=== PATIENT | female | born 1960 | race Caucasian/White ===

== ENCOUNTER 2023-07-07 10:33 | Outpatient (OUT) | payer OTHER, SELFPAY ==
[2023-07-07 11:06] LABS: Basophils Percent Auto 0.3 % (0.2-2.0); Eosinophils Absolute Auto 0.1 10^3/uL (0.0-0.7); Eosinophils Percent Auto 1.6 % (0.9-7.0); Hematocrit 38.4 % (36.0-48.0); Hemoglobin 12.1 g/dL (12.0-16.0); Immature Granulocytes Abs Auto 0.01 10^3/uL (0.00-0.03); Immature Granulocytes Pct Auto 0.1 % (0.0-0.5); Mean Corpuscular HGB Conc 31.5 g/dL (29.9-35.2); Mean Corpuscular Hemoglobin 31.3 pg (26.7-34.0); Mean Corpuscular Volume 99.2 fL (81.0-99.0); Mean Platelet Volume 10.6 fL (9.5-13.5); Monocytes Absolute Auto 0.4 10^3/uL (0.3-0.8); Monocytes Percent Auto 4.9 % (1.7-12.0); Neutrophils Absolute Auto 4.6 10^3/uL (1.4-6.5); Neutrophils Percent Auto 65.1 % (43.0-75.0); Platelet Count 273 10^3/uL (150-450); Red Blood Count 3.87 10^6/uL (4.20-5.40); Red Cell Distribution Width 13.1 % (11.0-15.0); White Blood Count 7.1 10^3/uL (4.0-11.0)
[2023-07-07 11:38] LABS: Estimated Average Glucose 120 mg/dL; Glycohemoglobin A1C 5.8 % (4.5-6.2)
[2023-07-07 12:18] LABS: Alanine Aminotransferase 15 U/L (14-59); Albumin Globulin Ratio 1.1; Albumin Level 3.8 g/dL (3.4-5.0); Alkaline Phosphatase 88 U/L (46-116); Anion Gap 12.9; Aspartate Amino Transferase 10 U/L (15-37); BUN Creatinine Ratio 20.9; Bilirubin Total 0.5 mg/dL (0.2-1.0); Calcium 9.2 mg/dL (8.5-10.1); Chloride 105 mmol/L (98-107); Chol HDL Ratio 3.5; Cholesterol 190 mg/dL (<=200); Estimated GFR (African America >60 (>=60); Estimated GFR (Non-African Ame >60 (>=60); Globulin 3.5 g/dL; Glucose 99 mg/dL (74-106); HDL Cholesterol 55 mg/dL (40-60); LDL Cholesterol Calculated 116.6 mg/dL; Potassium 3.9 mmol/L (3.5-5.1); Sodium 140 mmol/L (136-145); Thyroid Stimulating Hormone 2.999 uIU/mL (0.358-3.740); Total Protein 7.3 g/dL (6.4-8.2); Triglycerides 92 mg/dL (<=150); VLDL CHOLESTEROL 18.4 mg/dL
== END 2023-07-07 10:34 | disposition home or self-care (01) ==
PROVIDERS: PCP Internal Medicine; Visit Provider Internal Medicine
DX: Z00.00 Encounter for general adult medical examination without abnormal findings (principal)
CPT/HCPCS: 36415; 80053; 80061; 82607; 83036; 84443; 85025

== ENCOUNTER 2023-08-25 14:57 | Outpatient (OUT) | payer OTHER, SELFPAY ==
--- NOTE | 2023-08-25 14:59 | MM_ITS ---
Patient Name: JANETT SANTILLAN MR#: [id number] : 1960 Exam Date: 08/25/2023 Ordering Doctor: DR Sammy Jane D.O. RADIOLOGY REPORT PROCEDURE: MM TOMOSYNTHESIS SCREENING BI COMPARISON: MG MAMM SCREEN 3D [place] CAD, 08/06/2021. MG MAMM SCREEN [place] W CAD, 06/12/2019. MG MAMM [place] SCRN W CAD DIG, 06/20/2015. MG MAMM [place] SCRN W CAD DIG, 01/06/2012. INDICATIONS: Screening Calculator Name NCI Breast Cancer Risk Assessment Tool 5 Year Breast Cancer Risk 1.70% Lifetime Breast Cancer Risk 7.70% Personal Breast Cancer No Personal Ovarian Cancer No Treatments None Family Cancers Mother with uterine cancer at age ~60; Father with pancreatic cancer at age 65. LOCATION: [facility] BREAST COMPOSITION: Heterogeneously dense,which may obscure small masses. FINDINGS: DIAGNOSTIC CATEGORY 2--BENIGN FINDING: RIGHT BREAST: No significant suspicious finding. Scattered benign-appearing calcifications are present. No significant change has occurred. LEFT BREAST: No significant suspicious finding. Scattered benign-appearing calcifications are present. No significant change has occurred. RECOMMENDATIONS: ROUTINE MAMMOGRAM AND CLINICAL EVALUATION IN 12 MONTHS. PLEASE NOTE: A NORMAL MAMMOGRAM DOES NOT EXCLUDE THE POSSIBILITY OF BREAST CANCER. A CLINICALLY SUSPICIOUS PALPABLE LUMP SHOULD BE BIOPSIED. Dictated by: Rafael Rocha M.D. on 08/26/2023 at 12:47 Approved by: Rafael Rocha M.D. on 08/26/2023 at 12:52
== END 2023-08-25 14:58 | disposition home or self-care (01) ==
LOC: MAMMO 14:57
PROVIDERS: PCP Internal Medicine; Visit Provider Internal Medicine
DX: Z12.31 Encounter for screening mammogram for malignant neoplasm of breast (principal); Z80.49 Family history of malignant neoplasm of other genital organs; Z80.0 Family history of malignant neoplasm of digestive organs
CPT/HCPCS: 77063; 77067

== ENCOUNTER 2024-09-20 12:46 | Outpatient (OUT) | payer OTHER, SELFPAY ==
--- NOTE | 2024-09-20 12:51 | MM_ITS ---
Patient Name: JANETT SANTILLAN MR#: [id number] : 1960 Exam Date: 09/20/2024 Ordering Doctor: DR Sammy Jane D.O. RADIOLOGY REPORT PROCEDURE: MM TOMOSYNTHESIS SCREENING BI COMPARISON: MM TOMOSYNTHESIS SCREENING BI, 08/25/2023. MG MAMM SCREEN 3D [place] CAD, 08/06/2021. INDICATIONS: Screening for malignant neoplasm Calculator Name NCI Breast Cancer Risk Assessment Tool 5 Year Breast Cancer Risk 1.70% Lifetime Breast Cancer Risk 7.40% Personal Breast Cancer No Personal Ovarian Cancer No Treatments None Family Cancers Mother with uterine cancer at age ~60; Father with pancreatic cancer at age 65. LOCATION: [facility] BREAST COMPOSITION: The breasts are heterogeneously dense,which may obscure small masses. FINDINGS: DIAGNOSTIC CATEGORY 2--BENIGN FINDING. NO CHANGE FROM COMPARISON. Scattered benign-appearing calcifications are present. Scattered benign-appearing lymph nodes are present. RIGHT BREAST: No significant suspicious finding. LEFT BREAST: No significant suspicious finding. RECOMMENDATIONS: ROUTINE MAMMOGRAM AND CLINICAL EVALUATION IN 12 MONTHS. PLEASE NOTE: A NORMAL MAMMOGRAM DOES NOT EXCLUDE THE POSSIBILITY OF BREAST CANCER. A CLINICALLY SUSPICIOUS PALPABLE LUMP SHOULD BE BIOPSIED. Dictated by: Broderick Walters MD on 09/20/2024 at 15:34 Approved by: Broderick Walters MD on 09/20/2024 at 15:35
== END 2024-09-20 12:47 | disposition home or self-care (01) ==
LOC: MAMMO 12:46
PROVIDERS: PCP Internal Medicine; Visit Provider Internal Medicine
DX: Z12.31 Encounter for screening mammogram for malignant neoplasm of breast (principal); Z80.8 Family history of malignant neoplasm of other organs or systems
CPT/HCPCS: 77063; 77067

== ENCOUNTER 2025-07-26 12:40 | Outpatient (OUT) | payer OTHER, SELFPAY ==
--- NOTE | 2025-07-26 12:43 | CT_ITS ---
The [address] [address] Patient Name: JANETT SANTILLAN MRN: [id number] date: 1960 Sex: F Assigned Patient Location: CT Current Patient Location: CT Accession/Order Number: [id number] Exam Date: 07/26/2025 12:55 Report Date: 07/26/2025 14:55 At the request of: JAGUAR BONILLA DO Procedure: CT abdomen pelvis wo con CT ABDOMEN AND PELVIS WITHOUT INTRAVENOUS CONTRAST: CLINICAL HISTORY: calculus of kidney, abdominal pain COMPARISON: CT abdomen and pelvis 01/21/2019. TECHNIQUE: Spiral images were obtained through the abdomen and pelvis without intravenous contrast. This CT exam was performed using one or more following dose reduction techniques: Automated exposure control, adjustment of the mA and/or kV according to patient size, or use of iterative reconstruction technique. FINDINGS: Lung Bases: [Mild lung scarring.] Organs:Follow-up evaluation due to lack of IV contrast. 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 Gallbladder appears unremarkable. Pancreas spleen and adrenal glands appear unremarkable. Kidneys demonstrate no stone or hydronephrosis. Aorta appears normal in caliber. GI: Stomach demonstrates a tiny hiatal hernia. Small bowel appears nondilated. No acute colonic abnormality. Appendix is normal.[ Pelvis:[Urinary bladder and uterus appear unremarkable.] Peritoneum/Retroperitoneum:No free air or free fluid or lymphadenopathy. Mild haziness involving the mesentery.[ Abd wall/Bones:Abdominal wall demonstrate no acute findings. Osseous structures demonstrate degenerative change.[ CT/CT abdomen pelvis wo con IMPRESSION: 1. No acute findings. No urinary tract calculus. 2. Mild haziness involving the mesentery stable since 2018 suggesting a benign process. Impression dictated by: Jhoan Vazquez Jr., D.O. 07/26/2025 2:55 PM Dictation Location: [place] [address] Electronically authenticated by: [id number] Y Date: 07/26/2025 14:55
--- OUTSIDE RECORDS SUMMARY | 2025-07-26 12:44 | XMS_ITS | CCD ---
Author Organization [facility] Care Team Providers Care Speech Pathology Supervisor Name Role Phone NO FAMILY, PHYSICIAN Primary Care Provider Unava ROULA Allan Attending Provider Carline Nichols Unavailable BUCK, DR MONTESINOS Admitting Unavailable BALL, DR MONTESINOS Attending Unavailable BALL, DR MONTESINOS Consulting Unavailable BALL, DR MONTESINOS Primary Care Unavailable WEST, DR MARY KAY Gleason Consulting Unavailable CEZAR, LISA Attending Unavailable CEZAR, LISA Admitting Unavailable BALL, DR MONTESINOS Primary Care Unavailable CEZAR, LISA Consulting Unavailable BALL, DR MONTESINOS Primary Care Unavailable PERLA, DAVID Finnegan Admitting Unavailable WEST, DR MARY KAY Gleason Consulting Unavailable HIGHLANDER, DAVID Finnegan Attending Unavailable HIGHLANDER, DAVID Finnegan Consulting Unavailable BALL, DR MONTESINOS Admitting Unavailable BALL, DR MONTESINOS Attending Unavailable BALL, DR MONTESINOS Primary Care Unavailable BALL, DR MONTESINOS Admitting Unavailable BALL, DR MONTESINOS Attending Unavailable BALL, DR MONTESINOS Consulting Unavailable BALL, DR MONTESINOS Primary Care Unavailable BALL, DR MONTESINOS Admitting Unavailable BALL, DR MONTESINOS Attending Unavailable BALL, DR MONTESINOS Consulting Unavailable BALL, DR MONTESINOS Primary Care Unavailable ZIEBREX, DR RAFAEL Bennett Consulting Unavailable Sammy Jane Unavailable Shyann Keene Unavailable SAMMY JANE Referring Unavailable GENERIC PROVIDER, NO ASSIGNED PCP Primary Care Unavailable Sammy Jane DO Primary Care Provider [phone] Sammy Jane DO Attending Provider [phone] Sammy Jane DO Primary Care Provider Sammy Jane DO Attending Provider [phone] Sammy Jane DO Primary Care Provider Sammy Jane DO Attending Provider [phone] An Leon APRN Attending Provider [phone] Allergies Allergy Classification Reported Allergen(s) Allergy Type Date of Onset Reaction(s) Facility (2 sources) patient allergy list reviewed by nurse or physicia Propensity to adverse reactions 8 Comment:Done [facility] Other (2 sources) Allergies Reconciled Propensity to adverse reactions Unknown [facility] Other (1 source) ALLERGIES NOT ON FILE; Translations: [ALLERGIES NOT ON FILE] Propensity to adverse reactions (disorder) [facility] Medications Current Medications Medication Drug Class(es) Dates Sig (Normalized) Sig (Original) Excedrin Migraine (17 sources) Excedrin Migrain e PRN Active naproxen sodium 550 mg oral tablet (17 sources) Nonsteroidal Anti-inflammatory Drug Start: 05-24-2022 take 1 tablet by mouth every twelve hours at mealtime as needed Naproxen Sodium 550 MG 1 tablet with food or milk as needed Orally every 12 hrs for 7 days May, Active phentermine hydrochloride 37.5 mg oral tablet (3 sources) Sympathomimetic Amine Anorectic Start: 07-07-2023 take 1 tablet by mouth once daily before breakfast Adipex-P 37.5 MG 1 tablet before breakfast Orally Once a day for 30 days Jun, Active Post-OP Shoe/Soft Top Women - (17 sources) Start: 05-24-2022 Post-OP Shoe/Soft Top Women - as directed May, Active vitamin b12 1 mg/ml injectable solution (1 source) Vitamin B12 Start: 07-11-2025 inject 1000 ug by subcutaneous injection every month Cyanocobalamin (Vitamin B-12) 1,000 mcg/mL solution Active 1000 MCG SUBCUT every month July 11, 2025 12:00am Complies with drug therapy Completed/Discontinued Medications Medication Drug Class(es) Dates Sig (Normalized) Sig (Original) B-12 - up to 1000 mcg (20 sources) Start: 11-14-2023 B-12 - up to 1000 mcg Oct, 1000 mcg Start: 10-12-2023 B-12 - up to 1 000 mcg Sep, 1000 mcg Start: 09-05-2023 B-12 - up to 1 000 mcg Aug, 1000 mcg Start: 08-03-2023 B-12 - up to 1 000 mcg Jul, 1000 mcg Start: 06-27-2023 B-12 - up to 1 000 mcg Jun, 1000 mcg Start: 05-26-2023 B-12 - up to 1 000 mcg May, 1000 mcg Start: 04-25-2023 B-12 - up to 1 000 mcg Apr, 1000 mcg Start: 03-24-2023 B-12 - up to 1 000 mcg Mar, 1000 mcg Start: 02-21-2023 B-12 - up to 1 000 mcg February, 1000 mcg Start: 01-20-2023 B-12 - up to 1 000 mcg Jan, 1000 mcg Start: 12-20-2022 B-12 - up to 1 000 mcg Dec, 1000 mcg Start: 11-22-2022 B-12 - up to 1 000 mcg Nov, 1000 mcg Start: 10-19-2022 B-12 - up to 1 000 mcg Oct, 1000 mcg Triamcinolone (17 sources) Corticosteroid Start: 07-15-2019 KENALOG - 10 m g Jun, 40 mg Problems Active Problems Problem Classification Problem Date Documented Date Episodic/Chronic Abdominal pain (2 sources) Abdominal pain; Translations: [Unspecified abdominal pain] 07-04-2025 Episodic Calculus of urinary tract (15 sources) H/O: urinary stone; Translations: [Personal history of urinary calculi] Onset: 05-24-2019 Episodic Chronic kidney disease (2 sources) Chronic kidney disease; Translations: [Chronic kidney disease, unspecified] 07-04-2025 Chronic Deficiency and other anemia (20 sources) Pernicious anemia; Translations: [Vitamin B12 deficiency anemia due to intrinsic factor deficiency] 02-13-2024 Episodic Deficiency and other anemia (14 sources) Vitamin B12 deficiency anemia due to intrinsic factor deficiency; Translations: [Pernicious anemia] Episodic Deficiency and other anemia (2 sources) Anemia; Translations: [Anemia, unspecified] Episodic Diabetes mellitus with complications (2 sources) Hyperglycemia due to type 2 diabetes mellitus; Translations: [Type 2 diabetes mellitus with hyperglycemia] Chronic Diabetes mellitus without complication (3 sources) Abnormal glucose level; Translations: [Other abnormal glucose] Episodic Fracture of lower limb (7 sources) Displaced fracture of distal phalanx of left great toe, initial encounter for closed fracture; Translations: [Displaced unspecified fracture of left great toe, initial encounter for open fracture] Onset: 07-07-2022 Episodic Gout and other crystal arthropathies (2 sources) Gout; Translations: [Gout, unspecified] Chronic Open wounds of extremities (2 sources) Open wound of toe(s) with damage to nail; Translations: [Unspecified open wound of unspecified toe(s) with damage to nail, initial encounter] Episodic Other acquired deformities (2 sources) Joint contracture of the ankle and/or foot; Translations: [Contracture, 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 Other bone disease and musculoskeletal deformities (2 sources) Juvenile osteochondrosis of foot; Translations: [Juvenile osteochondrosis of tarsus, 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 Other connective tissue disease (4 sources) Pain in right foot; Translations: [PAIN IN RIGHT FOOT] Onset: 06-22-2022 Episodic Other connective tissue disease (2 sources) Pain in right foot; Translations: [Pain in right foot] Episodic Other connective tissue disease (2 sources) Pain in left foot; Translations: [Pain in left foot] Episodic Other connective tissue disease (2 sources) Plantar fascial fibromatosis; Translations: [Plantar fascial fibromatosis] Episodic Other connective tissue disease (2 sources) Achilles bursitis; Translations: [Achilles tendinitis, right leg] Episodic Other injuries and conditions due to external causes (1 source) Unspecified injury of left foot, initial encounter Episodic Other nutritional; endocrine; and metabolic disorders (2 sources) Hypocalcemia; Translations: [Hypocalcemia] Onset: 05-24-2019 Chronic Other nutritional; endocrine; and metabolic disorders (4 sources) Obesity; Translations: [Obesity, unspecified] 07-04-2025 Chronic Other nutritional; endocrine; and metabolic disorders (2 sources) Simple obesity ; Translations: [Other obesity due to excess calories] Onset: 05-26-2016 Chronic Other nutritional; endocrine; and metabolic disorders (10 sources) Body mass index 30+ - obesity; Translations: [Body mass index 30.0-30.9, adult] Onset: 05-26-2016 Chronic Other nutritional; endocrine; and metabolic disorders (8 sources) Obesity caused by energy imbalance; Translations: [Other obesity due to excess calories] Chronic Other nutritional; endocrine; and metabolic disorders (1 source) Other obesity due to excess calories Chronic Other nutritional; endocrine; and metabolic disorders (1 source) Body mass index (BMI) 30.0-30.9, adult Chronic Other screening for suspected conditions (not mental disorders or infectious disease) (9 sources) Encounter for screening mammogram for malignant neoplasm of breast; Translations: [Patient encounter status] Onset: 08-06-2021 Episodic Residual codes; unclassified (2 sources) Family history of ischemic heart disease and other diseases of the circulatory system; Translations: [Family history of ischemic heart disease and other diseases of the circulatory system] Onset: 10-31-2023 Episodic Spondylosis; intervertebral disc disorders; other back problems (2 sources) Low back pain; Translations: [Low back pain, unspecified] Episodic Superficial injury; contusion (1 source) Contusion of left upper arm, initial encounter Episodic Viral infection (2 sources) Disease caused by 2019-nCoV; Translations: [COVID-19] Past or Other Problems Problem Classification Problem Date Documented Date Episodic/Chronic Other diseases of kidney and ureters (2 sources) Hydronephrosis with renal and ureteral calculous obstruction; Translations: [Hydronephrosis with renal and ureteral calculous obstruction] Onset: 01-23-2019 Episodic Other skin disorders (10 sources) Hidradenitis suppurativa; Translations: [Hidradenitis suppurativa] Onset: 05-26-2016 Episodic Other skin disorders (2 sources) Hair and hair follicle diseases; Translations: [Other specified disease of hair and hair follicles] Onset: 06-04-2015 Episodic Other skin disorders (1 source) Hidradenitis suppurativa Onset: 05-26-2016 Episodic Residual codes; unclassified (1 source) Family history of malignant neoplasm of other genital organs; Translations: [FAM HX MALIG NEOPLSM OT GENIT ORGN] Onset: 08-13-2021 Episodic Residual codes; unclassified (1 source) Family history of malignant neoplasm of other organs or systems; Translations: [FAM HX MALIG NEOPLASM OT ORGN/SYS] Onset: 08-13-2021 Episodic Residual codes; unclassified (2 sources) Family history of stroke; Translations: [Family history of stroke] Onset: 04-15-2014 Episodic Skin and subcutaneous tissue infections (2 sources) Abscess; Translations: [Cellulitis and abscess of other specified site] Onset: 09-08-2014 Episodic Unclassified (1 source) Low back pain potentially associated with radiculopathy M54.50 Results Test Name Value Interpretation Reference Range Facility Basophils Auto (Bld) [#/Vol] Ordered By: Sammy Jane on 06-04-2025 Basophils (Bld) [#/Vol] 0.0 10 3/uL 0.0-0.1 [facility] Basophils/100 WBC Auto (Bld) Ordered By: Sammy Jane on 06-04-2025 Basophils/100 WBC (Bld) 0.4 % 0.2-2.0 [facility] Cholesterol in LDL Calc [Mas s/Vol]Ordered By: Sammy Jane on 06-04-2025 Cholesterol in LDL [Mass/Vol] 120.8 mg/dL [facility] Comment on above: <100 mg/dl [id number] 0-129 mg/dl NEAR OR ABOVE [id number] mg/dl BORDERLINE [id number] mg/dl HIGH>190 mg/dl VERY HIGH Cholesterol in VLDL Calc [Ma ss/Vol]Ordered By: Sammy Jane on 06-04-2025 Cholesterol in VLDL [Mass/Vol] 17.2 mg/dL [facility] Eosinophils/100 WBC Auto (Bl d)Ordered By: Sammy Jane on 06-04-2025 Eosinophils/100 WBC (Bld) 2.8 % 0.9-7.0 [facility] Erythrocyte distribution wid th Auto (RBC) [Ratio]Ordered By: Sammy Jane on 06-04-2025 Erythrocyte distribution width (RBC) [Ratio] 13.3 % 11.0-15.0 [facility] Globulin Calc (S) [Mass/Vol] Ordered By: Sammy Jane on 06-04-2025 Globulin (S) [Mass/Vol] 3.7 g/dL [facility] Glomerular filtration rate ( GFR) estimation in non- AmericanOrdered By: Sammy Jane on 06-04-2025 GFR/1.73 sq M.predicted among non-blacks MDRD (S/P/Bld) [Vol rate/Area] 54 mL/min/{1.73_m2} Low >=60 mL/min/1.73 m 2 [facility] Hematocrit Auto (Bld) [Volum e fraction]Ordered By: Sammy Jane on 06-04-2025 Hematocrit (Bld) [Volume fraction] 37.9 % 36.0-48.0 [facility] Hemoglobin [Mass/volume] in BloodOrdered By: Sammy Jane on 06-04-2025 Hemoglobin (Bld) [Mass/Vol] 12.4 g/dL 12.0-16.0 [facility] Laboratory - Chemistry and C hemistry - challengeOrdered By: Sammy Jane on 06-04-2025 Albumin [Mass/Vol] 3.7 g/dL 3.4-5.0 [facility] ALP [Catalytic activity/Vol] 86 U/L 46-116 [facility] ALT [Catalytic activity/Vol] 21 U/L 14-59 [facility] AST [Catalytic activity/Vol] 16 U/L 15-37 [facility] Bilirubin [Mass/Vol] 0.5 mg/dL 0.2-1.0 [facility] Calcium [Mass/Vol] 9.0 mg/dL 8.5-10.1 [facility] Chloride [Moles/Vol] 106 mmol/L 98-107 [facility] Cholesterol [Mass/Vol] 194 mg/dL <=200 [facility] Cholesterol in HDL [Mass/Vol] 56 mg/dL 40-60 [facility] Comment on above: > or =60 mg/dl - LOW CARDIOVASCULAR RISK<40 mg/dl - HIGH CARDIOVASCULAR RISK CO2 [Moles/Vol] 24.7 mmol/L 21.0-32.0 [facility] Creatinine [Mass/Vol] 1.03 mg/dL High 0.55-1.02 [facility] GFR/1.73 sq M.predicted MDRD (S/P/Bld) [Vol rate/Area] mL/min/{1.73_m2} >=60 mL/min/1.73 m 2 [facility] Glucose [Mass/Vol] 96 mg/dL 74-106 [facility] Potassium [Moles/Vol] 4.2 mmol/L 3.5-5.1 [facility] Protein [Mass/Vol] 7.4 g/dL 6.4-8.2 [facility] Sodium [Moles/Vol] 142 mmol/L 136-145 [facility] Triglyceride [Mass/Vol] 86 mg/dL <=150 [facility] TSH Qn 5.138 m[IU]/L High 0.358-3.740 [facility] Urea nitrogen [Mass/Vol] 20.0 mg/dL High 7.0-18.0 [facility] Urea nitrogen/Creatinine [Mass ratio] 19.4 mg/mg [facility] Laboratory - Hematology and Cell countsOrdered By: Sammy Jane on 06-04-2025 Immature granulocytes/100 WBC (Bld) 0.3 % 0.0-0.5 [facility] Leukocytes [#/volume] correc kathy for nucleated erythrocytes in Blood by Automated counOrdered By: Sammy Jane on 06-04-2025 WBC corrected for nucl RBC Auto (Bld) [#/Vol] 7.8 10 3/uL 4.0-11.0 [facility] Lymphocytes Auto (Bld) [#/Vo l]Ordered By: Sammy Jane on 06-04-2025 Lymphocytes (Bld) [#/Vol] 3.0 10 3/uL 1.2-3.8 [facility] Lymphocytes/100 WBC Auto (Bl d)Ordered By: Sammy Jane on 06-04-2025 Lymphocytes/100 WBC (Bld) 38.5 % 20.5-60.0 [facility] MCH Auto (RBC) [Entitic mass ]Ordered By: Sammy Jane on 06-04-2025 MCH (RBC) [Entitic mass] 31.9 pg 26.7-34.0 [facility] MCHC Auto (RBC) [Mass/Vol]Or dered By: Sammy Jane on 06-04-2025 MCHC (RBC) [Mass/Vol] 32.7 g/dL 29.9-35.2 [facility] MCV Auto (RBC) [Entitic vol] Ordered By: Sammy Jane on 06-04-2025 MCV (RBC) [Entitic vol] 97.4 fL 81.0-99.0 [facility] Monocytes Auto (Bld) [#/Vol] Ordered By: Sammy Jane on 06-04-2025 Monocytes (Bld) [#/Vol] 0.4 10 3/uL 0.3-0.8 [facility] Monocytes/100 WBC Auto (Bld) Ordered By: Sammy Jane on 06-04-2025 Monocytes/100 WBC (Bld) 5.3 % 1.7-12.0 [facility] Neutrophils Auto (Bld) [#/Vo l]Ordered By: Sammy Jane on 06-04-2025 Neutrophils (Bld) [#/Vol] 4.1 10 3/uL 1.4-6.5 [facility] Neutrophils/100 WBC Auto (Bl d)Ordered By: Sammy Jane on 06-04-2025 Neutrophils/100 WBC (Bld) 52.7 % 43.0-75.0 [facility] No Panel InformationOrdered By: Sammy Jane on 06-04-2025 Eosinophils # (Auto) 0.2 10 3/uL 0.0-0.7 [facility] Immature Granulocyte # (Auto) 0.02 10 3/uL 0.00-0.03 [facility] Platelet mean volume Auto (B ld) [Entitic vol]Ordered By: Sammy Jane on 06-04-2025 Platelet mean volume (Bld) [Entitic vol] 10.8 fL 9.5-13.5 [facility] Platelets Auto (Bld) [#/Vol] Ordered By: Sammy Jane on 06-04-2025 Platelets (Bld) [#/Vol] 304 10 3/uL 150-450 [facility] RBC Auto (Bld) [#/Vol]Ordere d By: Sammy Jane on 06-04-2025 RBC (Bld) [#/Vol] 3.89 10 6/uL Low 4.20-5.40 [facility] Serum or plasma albumin/glob ulin mass ratioOrdered By: Sammy Jane on 06-04-2025 Albumin/Globulin [Mass ratio] 1.0 {ratio} [facility] Serum or plasma anion gap de terminationOrdered By: Sammy Jane on 06-04-2025 Anion gap [Moles/Vol] 15.5 mmol/L [facility] Serum or plasma total choles terol/high density lipoprotein (HDL) cholesterol mass ratOrdered By: Sammy Jane on 06-04-2025 Cholesterol.total/Carol sterol in HDL [Mass ratio] 3.5 {ratio} [facility] Comment on above: 3.3 - 4.4 LOW RISK4. 4 - 7.1 AVERAGE RISK7.1 - 11.0 MODERATE RISK>11.0 HIGH RISK Basophils Auto (Bld) [#/Vol] on 06-01-2024 Basophils (Bld) [#/Vol] 0.0 10 3/uL 0.0-0.1 [facility] Basophils/100 WBC Auto (Bld) on 06-01-2024 Basophils/100 WBC (Bld) 0.4 % 0.2-2.0 [facility] Cholesterol in LDL Calc [Mas s/Vol]on 06-01-2024 Cholesterol in LDL [Mass/Vol] 119.4 mg/dL [facility] Comment on above: <100 mg/dl [id number] 0-129 mg/dl NEAR OR ABOVE [id number] mg/dl BORDERLINE [id number] mg/dl HIGH>190 mg/dl VERY HIGH Cholesterol in VLDL Calc [Ma ss/Vol]on 06-01-2024 Cholesterol in VLDL [Mass/Vol] 25.6 mg/dL [facility] Eosinophils/100 WBC Auto (Bl d)on 06-01-2024 Eosinophils/100 WBC (Bld) 2.2 % 0.9-7.0 [facility] Erythrocyte distribution wid th Auto (RBC) [Ratio]on 06-01-2024 Erythrocyte distribution width (RBC) [Ratio] 13.2 % 11.0-15.0 [facility] Estimated glomerular filtrat ion rate (GFR) non- Americanon 06-01-2024 GFR/1.73 sq M.predicted among non-blacks MDRD (S/P/Bld) [Vol rate/Area] mL/min/{1.73_m2} >=60 [facility] Globulin Calc (S) [Mass/Vol] on 06-01-2024 Globulin (S) [Mass/Vol] 3.4 g/dL [facility] Hematocrit Auto (Bld) [Volum e fraction]on 06-01-2024 Hematocrit (Bld) [Volume fraction] 39.2 % 36.0-48.0 [facility] Hemoglobin [Mass/volume] in Bloodon 06-01-2024 Hemoglobin (Bld) [Mass/Vol] 12.5 g/dL 12.0-16.0 [facility] Laboratory - Chemistry and C hemistry - challengeon 06-01-2024 Albumin [Mass/Vol] 3.6 g/dL 3.4-5.0 [facility] ALP [Catalytic activity/Vol] 77 U/L 46-116 [facility] ALT [Catalytic activity/Vol] 21 U/L 14-59 [facility] AST [Catalytic activity/Vol] 10 U/L Low 15-37 [facility] Bilirubin [Mass/Vol] 0.5 mg/dL 0.2-1.0 [facility] Calcium [Mass/Vol] 9.5 mg/dL 8.5-10.1 [facility] Chloride [Moles/Vol] 105 mmol/L 98-107 [facility] Cholesterol [Mass/Vol] 199 mg/dL <=200 [facility] Cholesterol in HDL [Mass/Vol] 54 mg/dL 40-60 [facility] Comment on above: > or =60 mg/dl - LOW CARDIOVASCULAR RISK<40 mg/dl - HIGH CARDIOVASCULAR RISK CO2 [Moles/Vol] 25.9 mmol/L 21.0-32.0 [facility] Creatinine [Mass/Vol] 0.87 mg/dL 0.55-1.02 [facility] GFR/1.73 sq M.predicted MDRD (S/P/Bld) [Vol rate/Area] mL/min/{1.73_m2} >=60 [facility] Glucose [Mass/Vol] 94 mg/dL 74-106 [facility] Potassium [Moles/Vol] 4.0 mmol/L 3.5-5.1 [facility] Protein [Mass/Vol] 7.0 g/dL 6.4-8.2 [facility] Sodium [Moles/Vol] 141 mmol/L 136-145 [facility] Triglyceride [Mass/Vol] 128 mg/dL <=150 [facility] TSH Qn 3.607 m[IU]/L 0.358-3.740 [facility] Urea nitrogen [Mass/Vol] 17.0 mg/dL 7.0-18.0 [facility] Urea nitrogen/Creatinine [Mass ratio] 19.5 mg/mg [facility] Laboratory - Hematology and Cell countson 06-01-2024 Immature granulocytes/100 WBC (Bld) 0.3 % 0.0-0.5 [facility] Leukocytes [#/volume] correc kathy for nucleated erythrocytes in Blood by Automated counon 06-01-2024 WBC corrected for nucl RBC Auto (Bld) [#/Vol] 7.6 10 3/uL 4.0-11.0 [facility] Lymphocytes Auto (Bld) [#/Vo l]on 06-01-2024 Lymphocytes (Bld) [#/Vol] 2.6 10 3/uL 1.2-3.8 [facility] Lymphocytes/100 WBC Auto (Bl d)on 06-01-2024 Lymphocytes/100 WBC (Bld) 33.9 % 20.5-60.0 [facility] MCH Auto (RBC) [Entitic mass ]on 06-01-2024 MCH (RBC) [Entitic mass] 31.6 pg 26.7-34.0 [facility] MCHC Auto (RBC) [Mass/Vol]on 06-01-2024 MCHC (RBC) [Mass/Vol] 31.9 g/dL 29.9-35.2 [facility] MCV Auto (RBC) [Entitic vol] on 06-01-2024 MCV (RBC) [Entitic vol] 99.0 fL 81.0-99.0 [facility] Monocytes Auto (Bld) [#/Vol] on 06-01-2024 Monocytes (Bld) [#/Vol] 0.4 10 3/uL 0.3-0.8 [facility] Monocytes/100 WBC Auto (Bld) on 06-01-2024 Monocytes/100 WBC (Bld) 5.7 % 1.7-12.0 [facility] Neutrophils Auto (Bld) [#/Vo l]on 06-01-2024 Neutrophils (Bld) [#/Vol] 4.4 10 3/uL 1.4-6.5 [facility] Neutrophils/100 WBC Auto (Bl d)on 06-01-2024 Neutrophils/100 WBC (Bld) 57.5 % 43.0-75.0 [facility] No Panel Informationon 06-01 Eosinophils # (Auto) 0.2 10 3/uL 0.0-0.7 [facility] Immature Granulocyte # (Auto) 0.02 10 3/uL 0.00-0.03 [facility] Platelet mean volume Auto (B ld) [Entitic vol]on 06-01-2024 Platelet mean volume (Bld) [Entitic vol] 11.0 fL 9.5-13.5 [facility] Platelets Auto (Bld) [#/Vol] on 06-01-2024 Platelets (Bld) [#/Vol] 327 10 3/uL 150-450 [facility] RBC Auto (Bld) [#/Vol]on RBC (Bld) [#/Vol] 3.96 10 6/uL Low 4.20-5.40 [facility] Serum or plasma albumin/glob ulin mass ratioon 06-01-2024 Albumin/Globulin [Mass ratio] 1.1 {ratio} [facility] Serum or plasma anion gap de terminationon 06-01-2024 Anion gap [Moles/Vol] 14.1 mmol/L [facility] Serum or plasma total choles terol/high density lipoprotein (HDL) cholesterol mass blaine 06-01-2024 Cholesterol.total/Carol sterol in HDL [Mass ratio] 3.7 {ratio} [facility] Comment on above: 3.3 - 4.4 LOW RISK4. 4 - 7.1 AVERAGE RISK7.1 - 11.0 MODERATE RISK>11.[address] CARDIAC SCORING WO IV CON TRASTon 10-31-2023 CT CARDIAC SCORING WO IV CONTRAST Interpreted By: Grant Streeter, ADDENDUM: NON-CARDIOVASCULAR FINDINGS INCLUDED LUNGS, AIRWAYS AND PLEURA Endotracheal / endobronchial lesion: Negative Nodule: Negative Airspace disease: Negative Pleural effusion: Negative Pneumothorax: Negative Other: Few scattered thin linear bands of atelectasis or scarring in the left midlung, mild INCLUDED NON-CARDIOVASCULAR AMPARO AND MEDIASTINUM Adenopathy: Negative Included esophagus: Unremarkable Other: No acute or contributory unanticipated findings INCLUDED BONES: No acute skeletal findings, noting less sensitivity and specificity without dedicated sagittal and coronal reformatted series. INCLUDED CHEST WALL No acute or contributory unanticipated findings INCLUDED UPPER ABDOMEN No acute or contributory unanticipated findings ------- NON-CARDIOVASCULAR IMPRESSION NO ACUTE OR CONTRIBUTORY UNEXPECTED FINDINGS OF THE INCLUDED NON-CARDIOVASCULAR STRUCTURES NOTE THIS ADDENDUM IS SOLELY FOR INTERPRETATION OF ANATOMY OUTSIDE THE CARDIOVASCULAR SYSTEM. INTERPRETATION OF AND REPORTING OF THE CARDIOVASCULAR STRUCTURES ARE THE SOLE RESPONSIBILITY OF THE [employer] SUBMITTING THE ORIGINAL REPORT (NOT THIS ADDENDUM) Signed by: Grant Streeter 11/01/2023 12:52 PM -------- ORIGINAL REPORT -------- Dictation workstation: [id number] Interpreted By: Miguel Lee, STUDY: CT CARDIAC SCORING WO IV CONTRAST; 10/31/2023 10:08 am INDICATION: Signs/Symptoms:SCREEN ING. COMPARISON: None. ACCESSION NUMBER(S): [id number] ORDERING CLINICIAN: SAMMY JANE TECHNIQUE: Using prospective ECG gating, CT scan of the coronary arteries was performed without intravenous contrast. Coronary calcium scoring was performed according to the method of Agatston. CT Dose-Length Product (DLP): 62.5 mGy*cm CT Dose Reduction Employed: Yes, prospective gating, iterative reconstruction. FINDINGS: The score and distribution of calcium in the coronary arteries is as follows: LM 0 LAD 0 LCx 0 RCA 0 Total 0 The visualized mid/lower ascending thoracic aorta measures 3.5 cm in diameter. The heart is normal in size. No pericardial effusion is present. IMPRESSION: 1. Coronary artery calcium score of 0*. *Coronary artery calcium scoring may be helpful in predicting the risk for future coronary heart disease events. According to the [employer] Clinical Expert Consensus Task Force, such testing provides important prognostic information in patients with more than one coronary heart disease risk factor. The coronary artery calcium score correlates with the annual risk of a non-fatal myocardial infarction or coronary heart disease . Coronary artery score Annual Risk 0-99 0.4% 100-399 1.3% >400 2.4% These three breakpoints correspond to lower, intermediate and high risk states for future coronary events. Such information should be used, along with appropriate clinical judgment, to make decisions regarding the intensity of risk factor management strategies to treat blood lipids and to modify other non-lipid coronary risk factors. Reference: Anshul P et al. Circulation. 2007; 115:402-426 [employer] Professor: Dr. Miguel Lee, Date: 11/01/2023 12:49 pm Signed by: Miguel Lee 11/01/2023 12:49 PM Dictation workstation: [id number] [facility] Comment on above: Order Comment: DAMARIS LEYVA HAS ORDER XR toe LT greaton 05-24-2022 XR toe LT great [facility] [place] [address] XRay Report Signed Patient: Janett Santillan MR#: [id number] : 1960 Acct:[id number] Age/Sex: 61 / F ADM Date: 05/24/22 Loc: XDUC Room: Type: [facility] Attending Dr: Carline CELESTE Copies to: CARLINE NICHOLS Ordering Provider: CARLINE NICHOLS Date of Service: 05/24/22 XR/XR toe LT great: Injury of left great toe, initial encounter XR toe LT great 05/24/2022 4:30 PM SIGNS AND SYMPTOMS: Injury to left great toe PROTOCOL: Frontal, lateral, and oblique radiographs of the left foot COMPARISON: None FINDINGS: There is extensive soft tissue defect over the great toe. There is cortical irregularity along the dorsal and medial surface of the distal phalanx suspicious for a minimally displaced fracture. No intra-articular extension. There is a fracture traversing the distal tuft of the distal phalanx of the great toe which is minimally displaced. There is mild narrowing of the first metatarsophalangeal junction. XR/XR toe LT great IMPRESSION: There is extensive soft tissue defect over the great toe. There is cortical irregularity along the dorsal and medial surface of the distal phalanx suspicious for a minimally displaced fracture. No intra-articular extension. There is a fracture traversing the distal tuft of the distal phalanx of the great toe which is minimally displaced. Impression dictated by: Grant Reese M.D.05/24/2022 4:53 PM Dictation Location: [place] [address] Transcribed By: PAM 05/24/221652 Dictated By: Grant Reese II, MD 05/24/22 165 Signed By: 05/24/221652 [facility] XR toe LT great [facility] [employer] Other XR toe LT great [facility] [place] [employer] Other XR toe LT great [address] [facility] [employer] [place] [address] [facility] [employer] Other XR toe LT great XRay Report [employer] Other XR toe LT great Signed [employer] Other XR toe LT great Patient: Janett Santillan MR#: [id number] [place] [employer] Other XR toe LT great 947 [place] [employer] Other XR toe LT great : 1960 Acct:[id number] [place] [employer] Other XR toe LT great Age/Sex: 61 / F ADM Date: 05/24/22 [employer] Other XR toe LT great Loc: XDUCLY Room: Type: [facility] [employer] Other XR toe LT great Attending Dr: Carline Nichols [facility] [employer] Other XR toe LT great Copies to: CARLINE [facility]S [facility] Other XR toe LT great Ordering Provider: CARLINE NICHOLS [facility] [employer] Other XR toe LT great Date of Service: 05/24/22 [employer] Other XR toe LT great XR/XR toe LT great: Injury of left great toe, initial encounter [employer] Other XR toe LT great XR toe LT great 05/24/2022 4:30 PM [place] [employer] Other XR toe LT great SIGNS AND SYMPTOMS: Injury to left great toe Located Within [facility] [employer] Other XR toe LT great PROTOCOL: Frontal, lateral, and oblique radiographs of the left foot Located [facility] [employer] Other XR toe LT great COMPARISON: None Nor [employer] Other XR toe LT great FINDINGS: [facility] [employer] Other XR toe LT great There is extensive soft tissue defect over the great toe. There is cortical irregularity along the [place] [employer] Other XR toe LT great dorsal and medial surface of the distal phalanx suspicious for a minimally displaced fracture. No [place] [employer] Other XR toe LT great intra-articular extension. There is a fracture traversing the distal tuft of the distal phalanx of [place] [employer] Other XR toe LT great the great toe which is minimally displaced. There is mild narrowing of the first Located [facility] [employer] Other XR toe LT great metatarsophalangeal junction. [place] [employer] Other XR toe LT great XR/XR toe LT great Located [facility] [employer] Other XR toe LT great IMPRESSION: [facility] [employer] Other XR toe LT great intra-articular extension. [employer] Other XR toe LT great There is a fracture traversing the distal tuft of the distal phalanx of the great toe which is [employer] Other XR toe LT great minimally displaced. [employer] Other XR toe LT great Impression dictated by: Grant Reese M.D.05/24/2022 4:53 PM [employer] Other XR toe LT great Dictation Location: [facility] [place] [address] [employer] Other XR toe LT great Transcribed By: PWS 05/24/22 [facility] [employer] Other XR toe LT great Dictated By: Grant Reese II, MD 05/24/22 [facility] [employer] Other XR toe LT great Signed By: [employer] [facility] [employer] Other XR toe LT great 05/24/22 [facility] [employer] Other CBC AUTO DIFFon 12-07-2021 BASO # 0.0 103/ul Normal 0.0-0.1 [facility] Comment on above: Performed By: #### C BC ####[facility] [address] [place], [place] [address]Dr. Bettye Luis Basophils/100 WBC (Bld) 0.5 % Normal 0.2-2.0 [facility] Comment on above: Performed By: #### C BC ####[facility] [address] [place] [address]DrDedra Luis EO # 0.1 103/ul Normal 0.0-0.7 [facility] Comment on above: Performed By: #### C BC ####[facility] [address] [place], [place] [address]Dr. Bettye Luis Eosinophils/100 WBC (Bld) 1.8 % Normal 0.9-7.0 [facility] Comment on above: Performed By: #### C BC ####[facility] [address] [place], [place] [address]Dr. Bettye Luis Erythrocyte distribution width (RBC) [Ratio] 13.3 % Normal 11.0-15.0 [facility] Comment on above: Performed By: #### C BC ####[facility] [address] [place], [place] [address]Dr. Bettye Luis Hematocrit (Bld) [Volume fraction] 38.5 % Normal 36.0-48.0 [facility] Comment on above: Performed By: #### C BC ####[facility] [address] [place] [address]Dr. Bettye Luis Hemoglobin (Bld) [Mass/Vol] 12.2 g/dL Normal 12.0-16.0 [facility] Comment on above: Performed By: #### C BC ####[facility] [address] [place] [address]Dr. Bettye Luis IG # 0.04 10e3/ul Critically high 0.00-0.03 [facility] Comment on above: Performed By: #### C BC ####[facility] [address] [place] [address]Dr. Bettye Toby IG % 0.5 % Normal 0.0-0.5 [facility] Comment on above: Performed By: #### C BC ####[facility] [address]ch[address] [place] [address]Dr. Jeannacal Luis LYMPH # 2.7 103/ul Normal 1.2-3.8 [facility] Comment on above: Performed By: #### C BC ####[facility] Nz[address]xz[address] [place] [address]Dr. Bettye Toby Lymphocytes/100 WBC (Bld) 35.8 % Normal 20.5-60.0 [facility] Comment on above: Performed By: #### C BC ####[facility] [address]rh[address] [place] [address]Dr. Bettye Luis MANUAL DIFF REQ NO Normal [facility] Comment on above: Performed By: #### C BC ####[facility] Toopdarxbs[address] [place] [address]Dr. Bettye Toby MCH (RBC) [Entitic mass] 31.4 pg Normal 26.7-34.0 [facility] Comment on above: Performed By: #### C BC ####[facility] [address]cwh[address] [place] [address]Dr. Bettye Toby MCHC (RBC) [Mass/Vol] 31.7 g/dL Normal 29.9-35.2 [facility] Comment on above: Performed By: #### C BC ####[facility] [address] [place] [address]Dr. Bettye Luis MCV (RBC) [Entitic vol] 99.0 fL Normal 81.0-99.0 [facility] Comment on above: Performed By: #### C BC ####[facility] Q[address]ub[address] [place] [address]Dr. Bettye Luis MONO # 0.3 103/ul Normal 0.3-0.8 [facility] Comment on above: Performed By: #### C BC ####[facility] [address]stcre[address] [place] [address]Dr. Bettye Luis Monocytes/100 WBC (Bld) 4.3 % Normal 1.7-12.0 [facility] Comment on above: Performed By: #### C BC ####[facility] [address] [place], [place] [address]Dr. Bettye Luis NEUT # 4.2 103/ul Normal 1.4-6.5 [facility] Comment on above: Performed By: #### C BC ####[facility] T[address] [place] [address]Dr. Bettye Luis Neutrophils/100 WBC (Bld) 57.1 % Normal 43.0-75.0 [facility] Comment on above: Performed By: #### C BC ####[facility] Ag[address]rfg[address]ov[address] [place] [address]Dr. Bettye Luis Platelet mean volume (Bld) [Entitic vol] 10.0 fL Normal 9.5-13.5 [facility] Comment on above: Performed By: #### C BC ####[facility] [address] [place] [address]Dr. Bettye Luis PLT 275 103/ul Normal 150-450 [facility] Comment on above: Performed By: #### C BC ####[facility] Mok[address]ixqkx[address] [place] [address]Dr. Bettye Toby RBC 3.89 106/ul Critically low 4.20-5.40 [facility] Comment on above: Performed By: #### C BC ####[facility] [address] [place], [place] [address]EgDr. Bettye Luis WBC 7.4 103/ul Normal 4.0-11.0 [facility] Comment on above: Performed By: #### C BC ####[facility] [address] [place], [place] [address]DkDr. Bettye Luis GLYCOHEMOGLOBIN A1Con 2021 ADA RECOMMENDATION ADA THERAPEUTIC TARGET 6.0 - 7.0 ACTION SUGGESTED > 7.0 Normal [facility] Comment on above: Performed By: #### A 1C #### [facility] [address] [place] [address] [address] Bettye Luis Glucose [Mass/Vol] 131 mg/dL Normal [facility] Comment on above: Performed By: #### A 1C #### [facility] [address] [place] [address] [address] Bettye Luis HbA1c (Bld) [Mass fraction] 6.2 % Critically high <=6.0 [facility] Comment on above: Performed By: #### A 1C #### [facility] [address] [place] [address] [address] Bettye Luis LIPID PROFILEon 12-07-2021 CHOL-HDL RATIO NORM SEE BELOW Normal [facility] Comment on above: Result Comment: 3.3 - 4.4 LOW RISK 4.4 - 7.1 AVERAGE RISK 7.1 - 11.0 MODERATE RISK >11.0 HIGH RISK Performed By: #### L IPID, CMP #### [facility] [address] [place] [address] [address] Bettye Luis Cholesterol [Mass/Vol] 172 mg/dL Normal <=200 Th [facility] Comment on above: Performed By: #### L IPID, CMP #### [facility] [address] [place] [address] [address] Bettye Luis Cholesterol in HDL [Mass/Vol] 51 mg/dL Normal [facility] Comment on above: Performed By: #### L IPID, CMP #### [facility] [address] [place] [address] [address] Bettye Luis Cholesterol in LDL [Mass/Vol] 98.2 mg/dL Normal [facility] Comment on above: Performed By: #### L IPID, CMP #### [facility] [address] [place] [address] [address] Bettye Luis Cholesterol.total/Carol sterol in HDL [Mass ratio] 3.4 {ratio} Normal [facility] Comment on above: Performed By: #### L IPID, CMP #### [facility] [address] [place] [address] [address] Bettye Luis HDL NORMAL > or = 60 mg/dl - LO W CARDIOVASCULAR RISK <40 mg/dl - HIGH CARDIOVASCULAR RISK Normal [facility] Comment on above: Performed By: #### L IPID, CMP #### [facility] [address] [place] [address] Dr. Bettye Luis LDL CALC NORMAL SEE BELOW Normal [facility] Comment on above: Result Comment: <100 mg/dl OPTIMAL 100 - 129 mg/dl NEAR OR ABOVE OPTIMAL 130 - 159 mg/dl BORDERLINE HIGH 160 - 189 mg/dl HIGH >190 mg/dl VERY HIGH Performed By: #### L IPID, CMP #### [facility] [address] [place] [address] Dr. Bettye Luis Triglyceride [Mass/Vol] 114 mg/dL Normal <=150 T [facility] Comment on above: Performed By: #### L IPID, CMP #### [facility] [address] [place] [address] Dr. Bettye Luis VLDL CALC 22.8 mg/dL Normal [facility] Comment on above: Performed By: #### L IPID, CMP #### [facility] [address] [place] [address] Dr. Bettye Luis PROF 14(COMP METB)on 022 Albumin [Mass/Vol] 3.4 g/dL Critically low 3.5-5.0 Th [facility] Comment on above: Performed By: #### L IPID, CMP #### [facility] [address] [place] [address] Dr. Bettye Luis Albumin/Globulin [Mass ratio] 1.0 {ratio} Normal [facility] Comment on above: Performed By: #### L IPID, CMP #### [facility] [address] [place] [address] Dr. Bettye Luis ALP [Catalytic activity/Vol] 78 U/L Normal 38-126 [facility] Comment on above: Performed By: #### L IPID, CMP #### [facility] [address] [place] [address] Dr. Bettye Luis ALT [Catalytic activity/Vol] 18 U/L Normal 9-52 [facility] Comment on above: Performed By: #### L IPID, CMP #### [facility] [address] [place] [address] Dr. Bettye Luis Anion gap [Moles/Vol] 12.5 mmol/L Normal Th [facility] Comment on above: Performed By: #### L IPID, CMP #### [facility] [address] [place] [address] Dr. Bettye Luis AST [Catalytic activity/Vol] 11 U/L Critically low 14-36 [facility] Comment on above: Performed By: #### L IPID, CMP #### [facility] [address] [place] [address] Dr. Bettye Luis Bilirubin [Mass/Vol] 0.4 mg/dL Normal 0.2-1.3 [facility] Comment on above: Performed By: #### L IPID, CMP #### [facility] [address] [place] [address] Dr. Bettye Luis Calcium [Mass/Vol] 8.7 mg/dL Normal 8.4-10.2 [facility] Comment on above: Performed By: #### L IPID, CMP #### [facility] [address] [place] [address] Dr. Bettye Luis Chloride [Moles/Vol] 108 mmol/L Critically high 98-107 [facility] Comment on above: Performed By: #### L IPID, CMP #### [facility] [address] [place] [address] Dr. Bettye Luis CO2 [Moles/Vol] 26.9 mmol/L Normal 22.0-30.0 [facility] Comment on above: Performed By: #### L IPID, CMP #### [facility] [address] [place] [address] Dr. Bettye Luis Creatinine [Mass/Vol] 0.90 mg/dL Normal 0.52-1.04 [facility] Comment on above: Performed By: #### L IPID, CMP #### [facility] [address] [place] [address] [address] Bettye Luis EGFR-AF GRENADIAN >60 Normal >=60 [facility] Comment on above: Performed By: #### L IPID, CMP #### [facility] [address] [place] [address] Dr. Bettye Luis EGFR-NON AF GRENADIAN >60 Normal >=60 [facility] Comment on above: Performed By: #### L IPID, CMP #### [facility] [address] [place] [address] Dr. Bettye Luis Globulin (S) [Mass/Vol] 3.5 g/dL Normal [facility] Comment on above: Performed By: #### L IPID, CMP #### [facility] [address] [place] [address] Dr. Bettye Luis Glucose [Mass/Vol] 103 mg/dL Normal 74-106 [facility] Comment on above: Performed By: #### L IPID, CMP #### [facility] [address] [place] [address] Dr. Bettye Luis Potassium [Moles/Vol] 4.3 mmol/L Normal 3.4-5.0 [facility] Comment on above: Performed By: #### L IPID, CMP #### [facility] [address] [place] [address] Dr. Bettye Luis Protein [Mass/Vol] 6.9 g/dL Normal 6.1-8.2 [facility] Comment on above: Performed By: #### L IPID, CMP #### [facility] [address] [place] [address] Dr. Bettye Luis Sodium [Moles/Vol] 143 mmol/L Normal 137-145 [facility] Comment on above: Performed By: #### L IPID, CMP #### [facility] [address] [place], [place] [address] Dr. Bettye Luis Urea nitrogen [Mass/Vol] 15.0 mg/dL Normal 7.0-17.0 [facility] Comment on above: Performed By: #### L IPID, CMP #### [facility] [address] [place], [place] [address] Dr. Bettye Luis Urea nitrogen/Creatinine [Mass ratio] 16.7 mg/mg Normal [facility] Comment on above: Performed By: #### L IPID, CMP #### [facility] [address] [place], [place] [address] Dr. Bettye Luis VITAMIN B12on 12-07-2021 Cobalamin (Vitamin B12) [Mass/Vol] 681.0 pg/mL Normal 239.0-931.0 [facility] Comment on above: Performed By: #### V ITB12 ####[facility] [address] [place], [place] [address]KwDr. Bettye Luis MG MAMM SCREEN 3D [place] CADon 08-06-2021 MG MAMM SCREEN 3D [place] CAD Patient: JANETT SANTILLAN Exam Date: 08/06/2021 : 1960 Gender:F Ordering : DR SAMMY JANE D.O. Admission #: [id number] Family : Order #: [id number] CLICK HERE TO VIEW EXAM RADIOLOGY REPORT PROCEDURE: MAMMOGRAM SCREENING 3D BILATERAL CAD COMPARISON: MG MAMM [place] SCRN W CAD DIG, 06/20/2015. MG MAMM SCREEN [place] W CAD, 06/12/2019. INDICATIONS: Screening mammography Calculator Name NCI Breast Cancer Risk Assessment Tool 5 Year Breast Cancer Risk 1.60% Lifetime Breast Cancer Risk 8.10% Personal Breast Cancer No Personal Ovarian Cancer No Treatments None Family Cancers Mother with uterine cancer at age 60; Father with pancreatic cancer at age 65. LOCATION: [facility] BREAST COMPOSITION: Heterogeneously dense,which may obscure small masses. FINDINGS: DIAGNOSTIC CATEGORY 2--BENIGN FINDING: RIGHT BREAST: No significant suspicious finding. Scattered benign-appearing calcifications are present. LEFT BREAST: No significant suspicious finding. Scattered benign-appearing calcifications are present. RECOMMENDATIONS: ROUTINE MAMMOGRAM AND CLINICAL EVALUATION IN 12 MONTHS. PLEASE NOTE: A NORMAL MAMMOGRAM DOES NOT EXCLUDE THE POSSIBILITY OF BREAST CANCER. A CLINICALLY SUSPICIOUS PALPABLE LUMP SHOULD BE BIOPSIED. Dictated by: Rafael Rocha M.D. on 08/06/2021 at 15:55 Approved by: Rafael Rocha M.D. on 08/06/2021 at 16:54 Normal [facility] CBC AUTO DIFFon 07-25-2021 BASO # 0.0 103/ul Normal 0.0-0.1 [facility] Comment on above: Performed By: #### C BC #### [facility] [address] [place] [address] Dr. Bettye Luis Basophils/100 WBC (Bld) 0.6 % Normal 0.2-2.0 [facility] Comment on above: Performed By: #### C BC #### [facility] [address] [place] [address] Dr. Bettye Luis EO # 0.1 103/ul Normal 0.0-0.7 [facility] Comment on above: Performed By: #### C BC #### [facility] [address] [place] [address] Dr. Bettye Luis Eosinophils/100 WBC (Bld) 1.9 % Normal 0.9-7.0 [facility] Comment on above: Performed By: #### C BC #### [facility] [address] [place] [address] Dr. Bettye Luis Erythrocyte distribution width (RBC) [Ratio] 13.1 % Normal 11.0-15.0 [facility] Comment on above: Performed By: #### C BC #### [facility] [address] [place] [address] Dr. Bettye Luis Hematocrit (Bld) [Volume fraction] 37.2 % Normal 36.0-48.0 [facility] Comment on above: Performed By: #### C BC #### [facility] [address] [place] [address] Dr. Bettye Luis Hemoglobin (Bld) [Mass/Vol] 11.7 g/dL Critically low 12.0-16.0 [facility] Comment on above: Performed By: #### C BC #### [facility] [address] [place] [address] Dr. Bettye Luis IG # 0.02 10e3/ul Normal 0.00-0.03 [facility] Comment on above: Performed By: #### C BC #### [facility] [address] [place] [address] Dr. Bettye Luis IG % 0.3 % Normal 0.0-0.5 [facility] Comment on above: Performed By: #### C BC #### [facility] [address] [place] [address] Dr. Bettye Luis LYMPH # 2.6 103/ul Normal 1.2-3.8 [facility] Comment on above: Performed By: #### C BC #### [facility] [address] [place] [address] Dr. Bettye Luis Lymphocytes/100 WBC (Bld) 35.7 % Normal 20.5-60.0 [facility] Comment on above: Performed By: #### C BC #### [facility] [address] [place] [address] Dr. Bettye Luis MANUAL DIFF REQ NO Normal [facility] Comment on above: Performed By: #### C BC #### [facility] [address] [place] [address] Dr. Bettye Luis MCH (RBC) [Entitic mass] 30.9 pg Normal 26.7-34.0 [facility] Comment on above: Performed By: #### C BC #### [facility] [address] [place] [address] Dr. Bettye Luis MCHC (RBC) [Mass/Vol] 31.5 g/dL Normal 29.9-35.2 [facility] Comment on above: Performed By: #### C BC #### [facility] [address] [place] [address] Dr. Bettye Luis MCV (RBC) [Entitic vol] 98.2 fL Normal 81.0-99.0 [facility] Comment on above: Performed By: #### C BC #### [facility] [address] [place] [address] [address] Bettye Luis MONO # 0.3 103/ul Normal 0.3-0.8 [facility] Comment on above: Performed By: #### C BC #### [facility] [address] [place] [address] [address] Bettye Luis Monocytes/100 WBC (Bld) 4.5 % Normal 1.7-12.0 [facility] Comment on above: Performed By: #### C BC #### [facility] [address] [place] [address] [address] Bettye Luis NEUT # 4.1 103/ul Normal 1.4-6.5 [facility] Comment on above: Performed By: #### C BC #### [facility] [address] [place] [address] Dr. Bettye Luis Neutrophils/100 WBC (Bld) 57.0 % Normal 43.0-75.0 [facility] Comment on above: Performed By: #### C BC #### [facility] [address] [address] [address] Bettye Luis Platelet mean volume (Bld) [Entitic vol] 10.4 fL Normal 9.5-13.5 [facility] Comment on above: Performed By: #### C BC #### [facility] [address] [place] [address] Dr. Bettye Luis PLT 307 103/ul Normal 150-450 [facility] Comment on above: Performed By: #### C BC #### [facility] [address] [place] [address] Dr. Bettye Luis RBC 3.79 106/ul Critically low 4.20-5.40 [facility] Comment on above: Performed By: #### C BC #### [facility] [address] [address] [address] Bettye Luis WBC 7.3 103/ul Normal 4.0-11.0 [facility] Comment on above: Performed By: #### C BC #### [facility] [address] [address] [address] Bettye Luis GLYCOHEMOGLOBIN A1Con 2020 ADA RECOMMENDATION ADA THERAPEUTIC TARGET 6.0 - 7.0 ACTION SUGGESTED > 7.0 Normal [facility] Comment on above: Performed By: #### A 1C ####[facility] [id number] [address]Dr. Bettye Luis Glucose [Mass/Vol] 140 mg/dL Normal [facility] Comment on above: Performed By: #### A 1C ####[facility] [id number] [address]DrDedra Luis HbA1c (Bld) [Mass fraction] 6.5 % Critically high <=6.0 [facility] Comment on above: Performed By: #### A 1C ####[facility] [id number] [address]Dr. Bettye Luis LIPID PROFILEon 07-25-2021 CHOL-HDL RATIO NORM SEE BELOW Normal [facility] Comment on above: Result Comment: 3.3 - 4.4 LOW RISK 4.4 - 7.1 AVERAGE RISK 7.1 - 11.0 MODERATE RISK >11.0 HIGH RISK Performed By: #### L IPID, CMP #### [facility] [address] [place] [address] Dr. Bettye Luis Cholesterol [Mass/Vol] 181 mg/dL Normal <=200 [facility] Comment on above: Performed By: #### L IPID, CMP #### [facility] [address] [address] [address] Bettye Luis Cholesterol in HDL [Mass/Vol] 50 mg/dL Normal [facility] Comment on above: Performed By: #### L IPID, CMP #### [facility] [address] [address] [address] Bettye Luis Cholesterol in LDL [Mass/Vol] 113.0 mg/dL Normal [facility] Comment on above: Performed By: #### L IPID, CMP #### [facility] [address] [address] [address] Bettye Luis Cholesterol.total/Carol sterol in HDL [Mass ratio] 3.6 {ratio} Normal [facility] Comment on above: Performed By: #### L IPID, CMP #### [facility] [address] [address] [address] Bettye Luis HDL NORMAL > or = 60 mg/dl - LO W CARDIOVASCULAR RISK <40 mg/dl - HIGH CARDIOVASCULAR RISK Normal [facility] Comment on above: Performed By: #### L IPID, CMP #### [facility] [address] [address] [address] Bettye Luis LDL CALC NORMAL SEE BELOW Normal [facility] Comment on above: Result Comment: <100 mg/dl OPTIMAL 100 - 129 mg/dl NEAR OR ABOVE OPTIMAL 130 - 159 mg/dl BORDERLINE HIGH 160 - 189 mg/dl HIGH >190 mg/dl VERY HIGH Performed By: #### L IPID, CMP #### [facility] [address] [place] [address] Dr. Bettye Luis Triglyceride [Mass/Vol] 90 mg/dL Normal <=150 T [facility] Comment on above: Performed By: #### L IPID, CMP #### [facility] [address] [address] [address] Bettye Luis VLDL CALC 18.0 mg/dL Normal [facility] Comment on above: Performed By: #### L IPID, CMP #### [facility] [address] [place] [address] Dr. Bettye Lius PROF 14(COMP METB)on 021 Albumin [Mass/Vol] 3.5 g/dL Normal 3.5-5.0 [facility] Comment on above: Performed By: #### L IPID, CMP #### [facility] [address] [place] [address] Dr. Bettye Luis Albumin/Globulin [Mass ratio] 0.9 {ratio} Normal [facility] Comment on above: Performed By: #### L IPID, CMP #### [facility] [address] [address] [address] Bettye Luis ALP [Catalytic activity/Vol] 79 U/L Normal 38-126 [facility] Comment on above: Performed By: #### L IPID, CMP #### [facility] [address] [address] [address] Bettye Luis ALT [Catalytic activity/Vol] 17 U/L Normal 9-52 [facility] Comment on above: Performed By: #### L IPID, CMP #### [facility] [address] [address] [address] Bettye Luis Anion gap [Moles/Vol] 13.1 mmol/L Normal [facility] Comment on above: Performed By: #### L IPID, CMP #### [facility] [address] [address] [address] Bettye Luis AST [Catalytic activity/Vol] 11 U/L Critically low 14-36 [facility] Comment on above: Performed By: #### L IPID, CMP #### [facility] [address] [place] [address] Dr. Bettye Luis Bilirubin [Mass/Vol] 0.4 mg/dL Normal 0.2-1.3 [facility] Comment on above: Performed By: #### L IPID, CMP #### [facility] [address] [place] [address] Dr. Bettye Luis Calcium [Mass/Vol] 9.0 mg/dL Normal 8.4-10.2 [facility] Comment on above: Performed By: #### L IPID, CMP #### [facility] [address] [place] [address] Dr. Bettye Luis Chloride [Moles/Vol] 104 mmol/L Normal 98-107 [facility] Comment on above: Performed By: #### L IPID, CMP #### [facility] [address] [place] [address] Dr. Bettye Luis CO2 [Moles/Vol] 26.9 mmol/L Normal 22.0-30.0 [facility] Comment on above: Performed By: #### L IPID, CMP #### [facility] [address] [place] [address] Dr. Bettye Luis Creatinine [Mass/Vol] 0.86 mg/dL Normal 0.52-1.04 [facility] Comment on above: Performed By: #### L IPID, CMP #### [facility] [address] [place] [address] Dr. Bettye Luis EGFR-AF GRENADIAN >60 Normal >=60 [facility] Comment on above: Performed By: #### L IPID, CMP #### [facility] [address] [place] [address] Dr. Bettye Luis EGFR-NON AF GRENADIAN >60 Normal >=60 [facility] Comment on above: Performed By: #### L IPID, CMP #### [facility] [address] [place] [address] Dr. Bettye Luis Globulin (S) [Mass/Vol] 4.0 g/dL Normal [facility] Comment on above: Performed By: #### L IPID, CMP #### [facility] [address] [place] [address] Dr. Bettye Luis Glucose [Mass/Vol] 103 mg/dL Normal 74-106 [facility] Comment on above: Performed By: #### L IPID, CMP #### [facility] [address] [place] [address] Dr. Bettye Luis Potassium [Moles/Vol] 4.0 mmol/L Normal 3.4-5.0 [facility] Comment on above: Performed By: #### L IPID, CMP #### [facility] [address] [place] [address] Dr. Bettye Luis Protein [Mass/Vol] 7.5 g/dL Normal 6.1-8.2 [facility] Comment on above: Performed By: #### L IPID, CMP #### [facility] [address] [place] [address] Dr. Bettye Luis Sodium [Moles/Vol] 140 mmol/L Normal 137-145 [facility] Comment on above: Performed By: #### L IPID, CMP #### [facility] [address] [place] [address] Dr. Bettye Luis Urea nitrogen [Mass/Vol] 19.0 mg/dL Critically high 7.0-17.0 [facility] Comment on above: Performed By: #### L IPID, CMP #### [facility] [address] [address] [address] Bettye Luis Urea nitrogen/Creatinine [Mass ratio] 22.1 mg/mg Normal [facility] Comment on above: Performed By: #### L IPID, CMP #### [facility] [address] [address] [address] Bettye Luis VITAMIN B12on 07-25-2021 Cobalamin (Vitamin B12) [Mass/Vol] 317.0 pg/mL Normal 239.0-931.0 [facility] Comment on above: Performed By: #### V ITB12 #### [facility] [address] [place] [address] Dr. Bettye Luis Vital Signs Date Time Vital Sign Value Performing Clinician Facility 07-04-2025 08:40-0400 Body height 167.64 cm Sammy Ball DO Work Phone: [facility] 07-04-2025 08:40-0400 Body mass index (BMI) [Ratio] 30 kg/m2 Sammy Ball DO Work Phone: [facility] 07-04-2025 08:40-0400 Body weight 84.53 kg Sammy Ball DO Work Phone: [facility] 07-04-2025 08:40-0400 Diastolic blood pressure 78 mm[Hg] Sammy Ball DO Work Phone: [facility] 07-04-2025 08:40-0400 Heart rate 75 /min Sammy Ball DO Work Phone: [facility] 07-04-2025 08:40-0400 Respiratory rate 12 /min Sammy Ball DO Work Phone: [facility] 07-04-2025 08:40-0400 Systolic blood pressure 120 mm[Hg] Sammy Ball DO Work Phone: [facility] 07-07-2023 09:30-0400 Body height 167.64 cm Sammy Ball Other [facility] Other 07-07-2023 09:30-0400 Body mass index (BMI) [Ratio] 30.11 kg/m2 Sammy Ball Other [facility] Other 07-07-2023 09:30-0400 Body weight 84.64 kg Sammy Ball Other [facility] Other 07-07-2023 09:30-0400 Diastolic blood pressure 78 mm[Hg] Sammy Ball Other [facility] Other 07-07-2023 09:30-0400 Respiratory rate 12 /min Sammy Ball Other [facility] Other 07-07-2023 09:30-0400 Systolic blood pressure 126 mm[Hg] Sammy Ball Other [facility] Other 05-24-2022 16:45-0400 Body height 167.64 cm Carline Cj Other [facility] Other 05-24-2022 16:45-0400 Body mass index (BMI) [Ratio] 29.86 kg/m2 Carline Nichols Other [facility] Other 05-24-2022 16:45-0400 Body weight 83.92 kg Carline Cj Other [facility] Other 05-24-2022 16:45-0400 Diastolic blood pressure 91 mm[Hg] Carlinekathrin Nichols Other [facility] Other 05-24-2022 16:45-0400 Respiratory rate 18 /min Carline Nichols Other [facility] Other 05-24-2022 16:45-0400 SaO2% (BldA) [Mass fraction] 100 % Carline Nichols Other [facility] Other 05-24-2022 16:45-0400 Systolic blood pressure 129 mm[Hg] Carline Nichols Other [facility] Other Encounters Encounter Date Encounter Type Care Provider Facility Start: 07-11-2025 End: 07-11-2025 ambulatory Sammy Jane DO Work Phone: [facility] Work Phone: Start: 07-11-2025 End: 07-11-2025 Patient encounter procedure An Leon APRN TRADE MANAGER -[facility] Work Phone: Start: 07-04-2025 End: 07-04-2025 ambulatory Sammy Jane DO Work Phone: [facility] Work Phone: Start: 07-04-2025 End: 07-04-2025 Patient encounter procedure Sammy Jane DO -[facility] Work Phone: Start: 07-04-2025 End: 07-04-2025 Patient encounter status Sammy Jane DO [facility] Start: 07-02-2025 Patient encounter status Sammy Jane DO Work Phone: [facility] Start: 06-10-2025 End: 06-10-2025 ambulatory Sammy Jane DO Work Phone: [facility] Work Phone: Start: 06-10-2025 End: 06-10-2025 Patient encounter procedure Sammy Jane DO -[facility] Work Phone: Start: 06-04-2025 Non-patient / Non-visit Sammy conteh DO -[employer] Work Phone: Start: 05-07-2025 End: 05-07-2025 ambulatory Sammy Jane DO Work Phone: [facility] Work Phone: Start: 05-07-2025 End: 05-07-2025 Patient encounter procedure Sammy Jane DO -[facility] Work Phone: Start: 04-05-2025 End: 04-05-2025 Patient encounter procedure Sammy Jane DO -[facility] Work Phone: Start: 03-05-2025 End: 03-05-2025 Patient encounter procedure Sammy Jane DO -[facility] Work Phone: Start: 12-31-2024 End: 12-31-2024 ambulatory [facility] Work Phone: Start: 12-31-2024 End: 12-31-2024 Patient encounter procedure [facility] Work Phone: Start: 11-29-2024 End: 11-29-2024 ambulatory [facility] Work Phone: Start: 11-29-2024 End: 11-29-2024 Patient encounter procedure [facility] Work Phone: Start: 10-29-2024 End: 10-29-2024 Patient encounter procedure [facility] Work Phone: Start: 09-28-2024 End: 09-28-2024 Patient encounter procedure [facility] Work Phone: Start: 06-20-2024 End: 06-20-2024 ambulatory [facility] Work Phone: Start: 06-20-2024 End: 06-20-2024 Patient encounter procedure [facility] Work Phone: Start: 06-01-2024 Non-patient / Non-visit [facility] Work Phone: Start: 05-17-2024 End: 05-17-2024 ambulatory [facility] Work Phone: Start: 05-17-2024 End: 05-17-2024 Patient encounter procedure [facility] Physician [facility] Work Phone: Start: 04-16-2024 End: 04-16-2024 ambulatory [facility] Work Phone: Start: 04-16-2024 End: 04-16-2024 Patient encounter procedure [facility] Physician [facility] Work Phone: Start: 03-14-2024 End: 03-14-2024 ambulatory [facility] Work Phone: Start: 03-14-2024 End: 03-14-2024 Patient encounter procedure [facility] Phys[facility] Work Phone: Start: 02-13-2024 End: 02-13-2024 ambulatory [facility] Work Phone: Start: 02-13-2024 End: 02-13-2024 Patient encounter procedure [facility] Physician [facility] Work Phone: Start: 01-13-2024 End: 01-13-2024 ambulatory [facility] Work Phone: Start: 01-13-2024 End: 01-13-2024 Patient encounter procedure [facility] Physician [facility] Work Phone: Start: 12-15-2023 End: 12-15-2023 Patient encounter procedure [facility] Physician [facility] Work Phone: Start: 11-14-2023 End: 11-14-2023 ambulatory Sammy Jane Other [facility] Other Start: 11-14-2023 Nursing evaluation o f patient and report Sammy Jane [facility] Start: 10-31-2023 End: 11-01-2023 ambulatory SAMMY Friend [facility] Start: 10-12-2023 End: 10-12-2023 ambulatory Sammy Jane Other [facility] Other Start: 10-12-2023 Nursing evaluation o f patient and report Sammy Jane [facility] Start: 09-05-2023 End: 09-05-2023 ambulatory Sammy Jane Other [facility] Other Start: 09-05-2023 Nursing evaluation o f patient and report Sammy Jane [facility] Start: 08-30-2023 End: 08-30-2023 ambulatory Sammy Jane Other [facility] Other Start: 08-30-2023 Telephone encounter Sammy Jane [facility] Start: 08-07-2023 End: 08-07-2023 ambulatory Sammy Jane Other [facility] Other Start: 08-07-2023 Telephone encounter Sammy Jane [facility] Start: 08-03-2023 End: 08-03-2023 ambulatory Sammy Jane Other [facility] Other Start: 08-03-2023 Nursing evaluation o f patient and report Sammy Jane [facility] Start: 07-08-2023 End: 07-08-2023 ambulatory Sammy Jane Other [facility] Other Start: 07-08-2023 Telephone encounter Sammy Jane [facility] Start: 07-07-2023 End: 07-07-2023 ambulatory Sammy Jane Other [facility] Other Start: 07-07-2023 Encounter for genera l adult medical examination without abnormal findings Sammy Jane [facility] Start: 07-07-2023 Periodic preventive med est patient 40-64yrs Sammy Jane [facility] Start: 06-27-2023 End: 06-27-2023 ambulatory Shyann Keene Other [facility] Other Start: 06-27-2023 Nursing evaluation o f patient and report Shyann Keene [facility] Start: 05-26-2023 End: 05-26-2023 ambulatory Sammy Jane Other [facility] Other Start: 05-26-2023 Nursing evaluation o f patient and report Sammy Jane [facility] Start: 04-25-2023 End: 04-25-2023 ambulatory Sammy Buck Other [facility] Other Start: 04-25-2023 Nursing evaluation o f patient and report Sammy Jane [facility] Start: 02-21-2023 End: 02-21-2023 ambulatory Sammy Buck Other [facility] Other Start: 02-21-2023 Nursing evaluation o f patient and report Sammy Jane [facility] Start: 01-20-2023 End: 01-20-2023 ambulatory Sammy Jane Other [facility] Other Start: 01-20-2023 Nursing evaluation o f patient and report Sammy Jane [facility] Start: 12-20-2022 End: 12-20-2022 ambulatory Sammy Buck Other [facility] Other Start: 12-20-2022 Nursing evaluation o f patient and report Sammy Jane [facility] Start: 11-22-2022 End: 11-22-2022 ambulatory Sammy Buck Other [facility] Other Start: 11-22-2022 Nursing evaluation o f patient and report Sammy Jane [facility] Start: 10-19-2022 End: 10-19-2022 ambulatory Sammy Jane Other [facility] Other Start: 10-19-2022 Nursing evaluation o f patient and report Sammy Jane [facility] Start: 07-07-2022 End: 07-08-[address] SAMMY JANE Facility: Start: 06-22-2022 End: 06-23-[address] MARY KAY VOGT Facility:[facility] Start: 06-22-2022 Adult health examination Sammy Buck Other Located [facility] Other Start: 05-24-2022 End: 05-24-2022 Patient encounter procedure PHYSICIAN NO FAMILY [facility] Start: 05-24-2022 End: 05-24-2022 ambulatory Carline Nichols Other Located [facility] Other Start: 05-24-2022 Office outpatient vi sit 15 minutes Carline Nichols [facility] Start: 12-08-2021 Encounter for genera l adult medical examination without abnormal findings DR SAMMY JANE [facility] Start: 12-07-2021 End: 12-08-[address] SAMMY JANE Facility:[facility] Start: 12-07-2021 End: 12-08-2021 Encounter for general adult medical examination without abnormal findings DR SAMMY JANE Facility:[facility] Start: 11-03-[address] SAMMY JANE Facili ty:[facility] Start: 08-06-2021 End: 08-07-[address] SAMMY JANE Facility:[facility] Start: 07-25-2021 End: 07-26-[address] SAMMY JANE Facility:[facility] Procedures Date Procedure Procedure Detail Performing Clinician Start: 10-31-2023 CT CARDIAC SCORING W O IV CONTRAST SAMMY JANE Start: 05-24-2022 Hallux X-ray PHYSICIAN NO FAMILY Start: 06-12-2015 Screening mammography B enjasavanna Buck Other Start: 04-15-2014 Diabetes mellitus screening Sammy Jane Other Start: 04-15-2014 General examination of patient Sammy Jane Other Depression screening Ayse Jane Other Screening for malign ant neoplasm of breast Sammy Jane Other Plan of Treatment Date Care Activity Detail Author Comprehensive metabo lic 2000 panel - Serum or Plasma [facility] enter CT Abdomen and Pelvis WO contrast [facility] MG Breast - bilateral Screening [facility] Payers Date Payer Category Payer Unknown [id number] [id number] [id number] 1960 Unknown [id number] 2.16.84 [id number] 1960 Unknown [id number] 2.16.84 [id number] 1961 Unknown [id number] 2.16.84 [id number] 1961 Unknown [id number] 2.16.84 [id number] 1961 Unknown [id number] 2.16.84 [id number] 1961 Unknown [id number] 2.16.84 [id number] 1961 Unknown [id number] 2.16.84 [id number] 1958 Self-pay [id number] 1958 Unknown [id number] Self-pay Self Pay [id number] Unknown O [id number] Social History Date Type Detail Facility Tobacco smoking status NHIS Unknown if ever smoked [facility] Work Phone: Start: 1960 Sex Assigned At Female F [facility] Sex Assigned At Sex Assigned At Bir th Located Within [facility] Other Start: 10-01-2018 End: 10-01-2018 Tobacco smoking status NHIS Never smoked tobacco (finding) [facility] Start: 11-29-2024 End: 12-31-2024 Sex Female (finding) [facility] Clinical Notes 05-24-2022 to 07-04-2025 Note Date & Type Note Facility 07-04-2025 Evaluation note Diagnosis Onset Date Resolution Abdominal pain acute July 04, 2025 8:24am Chronic kidney disease acute Se ptember 2024 8:24am Nephrolithiasis acute July 04, 2025 8:24am Obesity acute June 8:24am Pernicious anemia acute Septemb er 2024 8:24am Screening mammogram for breast cancer acute July 04, 2025 8:24am Wellness examination acute Jun ember 2024 8:24am [facility] Work Phone: 1(623) 336-333102-13-2025 Evaluation note* Diagnosis Onset Date Resolution Status Admit Date Pernicious anemia acute Februar y 2024 2:22pm [facility] Work Phone: 1(969) 480-821601-29-2024 Evaluation note* Encounter Date Diagnosis Assessment Notes Treatment Notes Treatment Clinical Notes Oct, Pernicious anemia (ICD-10 - D51.0) [facility] Other 12-27-2023 Evaluation note* Encounter Date Diagnosis Assessment Notes Treatment Notes Treatment Clinical Notes Sep, Pernicious anemia (ICD-10 - D51.0) [facility] Other 11-20-2023 Evaluation note* Encounter Date Diagnosis Assessment Notes Treatment Notes Treatment Clinical Notes Aug, Pernicious anemia (ICD-10 - D51.0) [facility] Other 10-18-2023 Evaluation note* Encounter Date Diagnosis Assessment Notes Treatment Notes Treatment Clinical Notes Jul, Pernicious anemia (ICD-10 - D51.0) [facility] Other 09-21-2023 Evaluation note* Encounter Date Diagnosis Assessment Notes Treatment Notes Treatment Clinical Notes Jun, Wellness examination (ICD-10 - Z00.00) Healthy diet and exercise. Reviewed age-appropriate preventive testing recommended. Jun, IFG (impaired fasting glucose) (ICD-10 - R73.01) Healthy diet, exercise and weight loss. Stressed importance of weight loss and improving insulin resistance. Discussed Metformin and GLP-1 inhibitors as treatment options w/ dual benefit of weight loss Jun, Pernicious anemia (ICD-10 - D51.0) Continue B12 injections. Recheck level Jun, Low back pain potentially associated with radiculopathy (ICD-10 - M54.50) The patient is instructed to avoid bending, twisting or lifting. They are to use intermittent heat and ice as needed. They may schedule a massage or gentle manipulation. They may safely use Tylenol as needed. Jun, Contusion of left upper extremity, initial encounter (ICD-10 - S40.022A) Ice/heat and Voltaren Gel Since not improving after 6 weeks will XR Jun, Other obesity due to excess calories (ICD-10 - E66.09) This patient has been instructed on a low-fat, high-fiber diet. They are instructed to reduce calories, portion sizes and snacks. It is recommended that they exercise for 30 minutes, 3-5 times weekly. Jun, Body mass index [BMI] 30.0-30.9, adult (ICD-10 - Z68.30) Jun, Personal history of urinary calculi (ICD-10 - Z87.442) Push fluids Jun, Screening mammogram for breast cancer (ICD-10 - Z12.31) Instructed patient on monthly SBE and yearly mammograms. May, Hidradenitis suppurativa (ICD-10 - L73.2) Stable w/o draining sores. [facility] Other 09-11-2023 Evaluation note* Encounter Date Diagnosis Assessment Notes Treatment Notes Treatment Clinical Notes Jun, Pernicious anemia (ICD-10 - D51.0) [facility] Other 08-10-2023 Evaluation note* Encounter Date Diagnosis Assessment Notes Treatment Notes Treatment Clinical Notes May, Pernicious anemia (ICD-10 - D51.0) [facility] Other 07-10-2023 Evaluation note* Encounter Date Diagnosis Assessment Notes Treatment Notes Treatment Clinical Notes Apr, Pernicious anemia (ICD-10 - D51.0) [facility] Other 05-08-2023 Evaluation note* Encounter Date Diagnosis Assessment Notes Treatment Notes Treatment Clinical Notes February, Pernicious anemia (ICD-10 - D51.0) [facility] Other 04-06-2023 Evaluation note* Encounter Date Diagnosis Assessment Notes Treatment Notes Treatment Clinical Notes Jan, Pernicious anemia (ICD-10 - D51.0) [facility] Other 03-06-2023 Evaluation note* Encounter Date Diagnosis Assessment Notes Treatment Notes Treatment Clinical Notes Dec, Pernicious anemia (ICD-10 - D51.0) [facility] Other 02-06-2023 Evaluation note* Encounter Date Diagnosis Assessment Notes Treatment Notes Treatment Clinical Notes Nov, Pernicious anemia (ICD-10 - D51.0) [facility] Other 01-03-2023 Evaluation note* Encounter Date Diagnosis Assessment Notes Treatment Notes Treatment Clinical Notes Oct, Vitamin B12 deficiency anemia due to intrinsic factor deficiency (ICD-10 - D51.0) [facility] Other 09-21-2022 NotePROCEDURE: XR FOOT LT MIN 3 VIEWS COMPARISON: HISTORY: Pain in left foot FINDINGS: BONES:Interval sclerosis along a tuft fracture of the first distal phalanx. No new fracture or dislocation. Stable degenerative changes with moderate enthesopathic spurring at the Achilles insertion and joint space narrowing at the first metatarsal-phalangeal joint SOFT TISSUES:Negative. No visible soft tissue swelling. EFFUSION:None visible. OTHER: Negative. IMPRESSION: Healing fracture tuft of the first distal phalanx Electronically authenticated by: MARY KAY VOGT Date: 2022-07-07 19:35[facility]09-07-2022 NotePROCEDURE: XR FOOT RT MIN 3 VIEWS COMPARISON: None. HISTORY: Pain in right foot FINDINGS: BONES:No acute fracture or dislocation. Moderate enthesopathic spurring of the calcaneus mild degenerative changes of the first metatarsal-phalangeal joint SOFT TISSUES:Negative. No visible soft tissue swelling. EFFUSION:None visible. OTHER: Negative. IMPRESSION: No acute abnormality Electronically authenticated by: MARY KAY VOGT Date: 2022-06-23 06:39[id number]* Encounter Date Diagnosis Assessment Notes Treatment Notes Treatment Clinical Notes May, Injury of left great toe, initial encounter (ICD-10 - S99.922A) May, Closed displaced fracture of distal phalanx of left great toe, initial encounter (ICD-10 - S92.422A) [facility] Other Evaluation noteNo assessment information available [facility] Work Phone: Evaluation noteNo InformationNort [facility] Other Evaluation note* Diagnosis Onset Date Resolution Status Admit Date Pernicious anemia acute 2024 8:24am Screening mammogram for breast cancer acute July 04, 2025 8:24am Wellness examination acute Jun 8:24am [facility] Work Phone: Hismjto general Narrative - Reported* Type Description Date Medical History Hidradenitis Suppurativa Surgical History C section Located Within [facility] Other Hise[facility] general Narrative - Reported* Type Description Date Medical History Hidradenitis Suppurativa Surgical History Problem Title : Yoly gomez Section - 1, Problem Status : Resolved, Surgical History Problem Title : past surgical history reviewed, Problem Description : past surgical history reviewed, Problem Comment : reviewed - no changes required, Problem Status : Resolved, Surgical History Problem Title : surg ical procedures, hx of, Problem Description : surgical procedures, hx of, Problem Comment : Colonoscopy 05/2016 Cystoscopy, Left Ureteroscope, ESWL, Left Ureteral Stent 01/2019, Problem Status : Resolved, Surgical History Problem Title : surg ical procedures, hx of, Problem Description : surgical procedures, hx of, Problem Comment : Colonoscopy 05/2016, Problem Status : Resolved, Surgical History Problem Title : surg ical procedures, hx of, Problem Description : surgical procedures, hx of, Problem Comment : , Problem Status : Resolved, Surgical History 1: Problem Title : s urgical procedures, hx of, Problem Description : surgical procedures, hx of, Problem Comment : 1988, Colonoscopy 05/2016, Cystoscopy, Left Ureteroscope, ESWL, Left Ureteral Stent 01/2019 Cystoscopy w/ Removal of Ureteral Surgical History 2: Stent 01/2019, Problem Status : Active, [facility] Other History general Narrative - Reported* Type Description Date Medical History Hidradenitis Suppurativa Medical History Nephrolithiasis Medical History B12 Deficiency Surgical History C section Hospitalization History see surgical history [facility] Other Reason for referral (narrative)No reason for referral [facility] Work Phone: Summary Purpose Family History Relationship Condition Age at Onset Recorded Date/T bree father Family history of pancreatic cancer Unkno wn Malignant neoplasm Unknown Unknown Not Specified Unknown History of stroke Unknown Relationship Condition Age at Onset Recorded Date/T bree father Family history of pancreatic cancer Unkno wn Malignant neoplasm Unknown Unknown mother Unknown History of stroke Unknown Advance Directives Advance Directive Response Recorded Date/ Time Advance Directives No September 2:18pm Advance Directive Response Recorded Date/ Time Advance Directives No September 1:18pm Chief Complaint and Reason for Visit Chief Complaint S99.922A Chief Complaint B-12 SHOT B-12 SHOT Chief Complaint B-12 SHOT B-12 SHOT B12 Chief Complaint B-12 SHOT B-12 SHOT B12 b12 shot Chief Complaint B12 b12 shot B12 Shot Chief Complaint b12 shot B12 Shot VITAMIN B12 Chief Complaint B12 Shot VITAMIN B12 B12 Shot Chief Complaint Admit Date b12 shot September 28, 2024 3:13pm B12 shot October 29, 2024 2 :53pm B12 shot November 29, 2024 2:22pm Chief Complaint Admit Date B12 shot October 29, 2024 2 :53pm B12 shot November 29, 2024 2:22pm B12 shopt December 31, 2024 8:2 9am Reason for Visit Admit Date Pernicious anemia November 29, 2024 2:22pm Chief Complaint Admit Date B12 shot March 05, 2025 3:17p m b12 shot April 05, 2025 9:30 am B12 shot May 07, 2025 10:3 9am Chief Complaint Admit Date b12 shot April 05, 2025 9:30 am B12 shot May 07, 2025 10:3 9am B12 shot June 10, 2025 2: 53pm Chief Complaint Admit Date b12 shot April 05, 2025 9:30 am B12 shot May 07, 2025 10:3 9am B12 shot June 10, 2025 2: 53pm Wellness July 04, 2025 8:24am Reason for Visit Admit Date Pernicious anemia July 04, 2025 8:24am Screening mammogram for breast cancer Se ptember 2024 8:24am Wellness examination July 04 8:24am Chief Complaint Admit Date B12 shot May 07, 2025 10:3 9am B12 shot June 10, 2025 2: 53pm Wellness July 04, 2025 8:24am B12 Shot July 11, 2025 2:55pm Reason for Visit Admit Date Abdominal pain July 04, 2025 8:24am Chronic kidney disease July 04, 8:24am Nephrolithiasis July 04, 2025 8:24am Obesity July 04, 2025 8:24am Pernicious anemia July 04, 2025 8:24am Screening mammogram for breast cancer Se ptember 2024 8:24am Wellness examination July 04 8:24am Additional Source Comments INFORMATION SOURCE (unrecogn ized section and content) DATE CREATED AUTHOR 05/27/2022 [facility] DATE CREATED AUTHOR AUTHOR'S ORGANIZ ATION 07/18/2022 [facility] DATE CREATED AUTHOR AUTHOR'S ORGANIZ ATION 11/05/2023 [facility] Care Teams (unrecognized sec tion and content) Team Status: Inactive Member Role Status Dates PHYSICIAN NO FAMILY Primary Care Provider Active ROULA Ren Attending Provider Active Team Status: Active Member Role Status Dates PHYSICIAN NO FAMILY Primary Care Provider Active Team Status: Inactive Member Role Status Dates PHYSICIAN NO FAMILY Primary Care Provider Active Start: December 15, 2023 End: December 15, 2023 Shyann Keene MD Attending Provider Active St art: December 15, 2023 End: December 15, 2023 Team Status: Inactive Member Role Status Dates PHYSICIAN NO FAMILY Primary Care Provider Active Start: January 13, 2024 End: January 13, 2024 Sammy Jane DO Attending Provider Active Sta rt: January 13, 2024 End: January 13, 2024 Team Status: Active Member Role Status Tori Jane DO Primary Care Provider Active Team Status: Inactive Member Role Status Tori Jane DO Primary Care Provide r, Attending Provider Active Start: February 13, 2024 End: February 13, 2024 Team Status: Inactive Member Role Status Tori Jane DO Primary Care Provide r, Attending Provider Active Start: March 14, 2024 End: March 14, 2024 Team Status: Inactive Member Role Status Tori Jane DO Primary Care Provide r, Attending Provider Active Start: April 16, 2024 End: April 16, 2024 Team Status: Inactive Member Role Status Tori Jane DO Primary Care Provide r, Attending Provider Active Start: May 17, 2024 End: May 17, 2024 Team Status: Active Member Role Status Tori Jane DO Primary Care Provide r, Attending Provider Active Start: June 01, 2024 Team Status: Inactive Member Role Status Tori Jane DO Primary Care Provide r, Attending Provider Active Start: June 20, 2024 End: June 20, 2024 Team Status: Inactive Member Role Status Tori Jane DO Primary Care Provide r, Attending Provider Active Start: September 28, 2024 End: September 28, 2024 Team Status: Inactive Member Role Status Tori Jane DO Primary Care Provide r, Attending Provider Active Start: October 29, 2024 End: October 29, 2024 Team Status: Inactive Member Role Status Tori Jane DO Primary Care Provider Active Start: November 29, 2024 End: November 29, 2024 Shyann Keene MD Attending Provider Active St art: November 29, 2024 End: November 29, 2024 Team Status: Inactive Member Role Status Tori Jane DO Primary Care Provide r, Attending Provider Active Start: December 31, 2024 End: December 31, 2024 Team Status: Inactive Member Role Status Tori Jane DO Primary Care Provider Active Start: March 05, 2025 End: March 05, 2025 Sammy Jane DO Attending Provider Active Sta rt: March 05, 2025 End: March 05, 2025 Team Status: Inactive Member Role Status Tori Jane DO Primary Care Provider Active Start: April 05, 2025 End: April 05, 2025 Sammy Jane DO Attending Provider Active Sta rt: April 05, 2025 End: April 05, 2025 Team Status: Inactive Member Role Status Dates Sammy Jane Primary Care Provider Active Start: May 07, 2025 End: May 07, 2025 Sammy Jane , DO Attending Provider Active Sta rt: May 07, 2025 End: May 07, 2025 Team Status: Active Member Role Status Dates Sammy Jane , Primary Care Provider Active Start: June 04, 2025 Sammy Jane , DO Attending Provider Active Sta rt: June 04, 2025 Team Status: Inactive Member Role Status Dates Sammy Jane , Primary Care Provider Active Start: June 10, 2025 End: June 10, 2025 Sammy Jane , DO Attending Provider Active Sta rt: June 10, 2025 End: June 10, 2025 Team Status: Inactive Member Role Status Dates Sammy Jane , Primary Care Provider Active Start: July 04, 2025 End: July 04, 2025 Sammy Jane , DO Attending Provider Active Sta rt: July 04, 2025 End: July 04, 2025 Team Status: Inactive Member Role Status Dates Sammy Jane , Primary Care Provider Active Start: July 11, 2025 End: July 11, 2025 An Leon APRN CONTRACT DESIGNER-C Attending Provider Active Start: June End: July 11, 2025 Goals (unrecognized section and content) Goals may be documented in a n alternate sectionNo InformationNo InformationNo InformationNo InformationNo InformationNo InformationNo InformationNo InformationNo InformationNo InformationNo InformationNo InformationNo InformationNo InformationNo InformationNo InformationNo InformationGoals may be documented in an alternate sectionGoals may be documented in an alternate sectionGoals may be documented in an alternate sectionGoals may be documented in an alternate sectionGoals may be documented in an alternate sectionGoals may be documented in an alternate sectionGoals may be documented in an alternate sectionGoals may be documented in an alternate sectionGoals may be documented in an alternate sectionGoals may be documented in an alternate sectionGoals may be documented in an alternate sectionGoals may be documented in an alternate section REASON FOR VISIT (unrecogniz ed section and content) LEFT FOOT BIG TOE, DROPPED B OOKSHELF ON FOOT AND FLIPPED NAIL UPB-12 ShotB-12 ShotB-12 ShotB-12 ShotB-12 ShotB-12 [id number] ShotWELLNESSLab ResultsB-12 ShotUpdatemamm resultsB-12 SHOTB-12 ShotB-12 SHOT FOR RECORDS PERTAINING TO PATIENTS WHO ARE OR HAVE BEEN ENROLLED IN A CHEMICAL DEPENDENCY/SUBSTANCEABUSE PROGRAM, SOME INFORMATION MAY BE OMITTED. This clinical summary was aggregated from multiple sources. Caution should be exercised in using it in the provision of clinical care. This summary normalizes information from multiple sources, and as a consequence, information in this document may materially change the coding, format and clinical context of patient data. In addition, data may be omitted in some cases. CLINICAL DECISIONS SHOULD BE BASED ON THE PRIMARY CLINICAL RECORDS. [facility]. provides no warranty or guarantee of the accuracy or completeness of information in this document.
== END 2025-07-26 12:41 | disposition home or self-care (01) ==
LOC: CT 12:40
PROVIDERS: PCP Internal Medicine; Visit Provider Internal Medicine
DX: N20.0 Calculus of kidney (principal); R10.32 Left lower quadrant pain
CPT/HCPCS: 74176